=== PATIENT | male | born 1945 | race Caucasian/White ===

== ENCOUNTER → 2016-10-14 | Outpatient (CLI) | payer MEDICARE ==
[~2016-10-14] MED LIST: ASPIRINBUFF PO; BACITRACIN30 GM TOP; GLUCOPHAGE500 M1 PO; GLUCOTROL; IBUPROFEN PO; KEFLEX PO; LIPITOR; LISINOPRIL-HCTZ1 T18 PO; LOPID600 MG PO; TREXALL10 MG PO; VITAMIN C PO
--- NOTE | ~2016-10-14 | US13 ---
[facility] A Service of [facility] RADIOLOGY TEXT RESULTS PATIENT: ANA M NOBLES LOCATION: [facility] : 45 UNIT #: [id number] AGE: [address]: Rey Grifftih MD SEX: M ORDER DR: [id number] [address] [address] [id number] O MR#: [id number] Acc #: [id number] NAME: ANA M NOBLES : 1945 SEX: M STUDY DATE/TIME: 10/14/2016 8:53 UNIT: [facility] ROOM: STUDY DESCRIPTION: US Aorta Limited Attending Physician: Rey Griffith Jr., M.D. Referring Physician: Rey Griffith Jr., M.D. Ordering Physician: Rey Griffith Jr., M.D. Primary Care Physician: Rey Griffith Jr., M.D. MEDICAL IMAGING REPORT This report is preliminary unless electronic signature is present. EXAM Ultrasound of the aorta DATE OF EXAMINATION 10/14/2016 HISTORY Former smoker. Screening for abdominal aortic aneurysm. FINDINGS High resolution B-mode imaging and color flow Doppler analysis was performed of the abdominal aorta in longitudinal and transverse views. The proximal abdominal aorta measures 2.2 x 2.0 x 2.5 cm, the mid abdominal aorta measures 1.6 x 2.0 x 2.2 cm. The distal abdominal aorta measures 1.2 x 1.6 x 2.1 cm. There is no focal elevation of Doppler velocities to suggest significant stenosis. The iliac arteries were not evaluated. IMPRESSION Normal examination of the abdominal aorta. No aneurysm is demonstrated. Dictated by... Javier Ellis M.D. THIS IS AN ELECTRONICALLY VERIFIED REPORT Javier Ellis M.D. at 10/15/2016 9:40 AM Dionne TD: 10/14/2016 15:11 JOB #: [id number] [facility] A Service [facility] RADIOLOGY TEXT RESULTS PATIENT: ANA M NOBLES LOCATION: [facility] #: [id number] : 45 UNIT #: [id number] AGE: [address]: Rey Griffith MD SEX: M ORDER DR: MEDICAL IMAGING REPORT Page 1 of 1
== END | disposition home or self-care (01) ==
LOC: SGUS 08:05
DX: Z13.6 Encounter for screening for cardiovascular disorders (principal); Z87.891 Personal history of nicotine dependence
CPT/HCPCS: 76775

== ENCOUNTER 2016-10-20 08:42 | Emergency (ER) | payer MEDICARE ==
--- NOTE | ~2016-10-20 | CR173 ---
[facility] A Service of [facility] & [facility] RADIOLOGY TEXT RESULTS PATIENT: ANA M NOBLES LOCATION: SED : 45 UNIT #: [id number] AGE: [address]: Bakari Simmons MD SEX: M ORDER DR: [id number] [place] [address] [id number] E MR#: [id number] Acc #: [id number] NAME: ANA M NOBLES. : 1945 SEX: M STUDY DATE/TIME: 10/20/2016 09:18 UNIT: SED ROOM: STUDY DESCRIPTION: CR Knee 3 Views Rt Attending Physician: Bakari Simmons M.D. Ordering Physician: Bakari Simmons M.D. Primary Care Physician: Rey Griffith Jr., M.D. MEDICAL IMAGING REPORT This report is preliminary unless electronic signature is present. EXAM Right knee 3 views 10/20/2016 0918 hours CLINICAL HISTORY 71-year-old man with twisting injury while running last night with fall, knee pain since fall. COMPARISON None. FINDINGS AP, lateral and sunrise views demonstrate no joint effusion or fracture. There is no os joint space loss, spurring or loose body. IMPRESSION Normal right knee. Dictated by... Wen Kaur M.D. THIS IS AN ELECTRONICALLY VERIFIED REPORT Wen Kaur M.D. at 10/20/2016 2:28 PM ALYSE/anne-marie TD: 10/20/2016 11:01 JOB #: [id number] MEDICAL IMAGING REPORT Page 1 of 1
[~2016-10-20 08:42] MED LIST changes: -GLUCOTROL; -LIPITOR
[2016-10-20] MEDS ORDERED: LIPITOR (08:47)
[2016-10-20] MEDS ORDERED: GLUCOTROL (08:48)
== END 2016-10-20 09:52 | disposition home or self-care (01) ==
LOC: SED 08:42
DX: S83.511A Sprain of anterior cruciate ligament of right knee, initial encounter (principal); E11.9 Type 2 diabetes mellitus without complications; I10 Essential (primary) hypertension; X50.1XXA Overexertion from prolonged static or awkward postures, initial encounter; Y92.009 Unspecified place in unspecified non-institutional (private) residence as the place of occurrence of the external cause; Z79.84 Long term (current) use of oral hypoglycemic drugs; Z79.899 Other long term (current) drug therapy
CPT/HCPCS: 29505; 73562; 99283

== ENCOUNTER 2016-12-04 15:17 | Emergency (ER) | payer MEDICARE ==
--- NOTE | ~2016-12-04 | US85 ---
[facility] A Service of [facility] & [facility] RADIOLOGY TEXT RESULTS PATIENT: ANA M NOBLES LOCATION: [facility] : 45 UNIT #: [id number] AGE: [address]: Kishore Goodwin SEX: M ORDER DR: [id number] [facility] [address] [place], [place] [address] [id number] E MR#: [id number] Acc #: [id number] NAME: ANA M NOBLES. : 1945 SEX: M STUDY DATE/TIME: 12/04/2016 16:39 UNIT: [facility] ROOM: STUDY DESCRIPTION: [facility] Attending Physician: (Tana) Kishore Goodwin Ordering Physician: Tana Goodwin Primary Care Physician: Rey Griffith Jr., M.D. MEDICAL IMAGING REPORT This report is preliminary unless electronic signature is present EXAM Right leg vein Doppler, 12/04/2016. INDICATIONS Fall 6 weeks ago. Right lower extremity swelling in the calf and ankle for one day. TECHNIQUE Venous ultrasound examination of the right lower extremity was performed using grayscale, spectral Doppler and color flow Doppler imaging. FINDINGS The examination is negative. There is no evidence of right lower extremity deep venous thrombus from the groin to the lower calf. Visualized greater saphenous vein is also patent. IMPRESSION Negative examination. No evidence of right lower extremity DVT. Dictated by... Bakari Alan Jr., M.D. THIS IS AN ELECTRONICALLY VERIFIED REPORT Bakari Alan Jr., M.D. at 12/07/2016 5:54 AM CAITY/zach TD: 12/05/2016 00:52 JOB #: [id number] MEDICAL IMAGING REPORT Page 1 of 1 COPY
--- NOTE | ~2016-12-04 | CR173 ---
[facility] A Service of [facility] & [facility] RADIOLOGY TEXT RESULTS PATIENT: ANA M NOBLES LOCATION: [facility] : 45 UNIT #: [id number] AGE: [address]: Kishore Goodwin SEX: M ORDER DR: [id number] [facility] [address] [place], [place] [address] [id number] E MR#: [id number] Acc #: [id number] NAME: ANA M NOBLES. : 1945 SEX: M STUDY DATE/TIME: 12/04/2016 17:02 UNIT: [facility] ROOM: STUDY DESCRIPTION: CR Knee 3 Views Rt Attending Physician: Kishore Goodwin Ordering Physician: Kishore Goodwin Primary Care Physician: Rey Griffith Jr., M.D. MEDICAL IMAGING REPORT This report is preliminary unless electronic signature is present EXAM Right knee, 3 views. INDICATION Right knee pain and swelling for 1.5 months but reinjured it yesterday. COMPARISON Comparison with 10/20/2016. FINDINGS There is no significant joint space narrowing. There is no fracture or joint effusion. No dislocation. Vascular calcifications. IMPRESSION No acute findings. Dictated by... Teodoro Uriarte M.D. THIS IS AN ELECTRONICALLY VERIFIED REPORT Teodoro Uriarte M.D. at 12/09/2016 1:32 PM SMITH/matt TD: 12/05/2016 02:07 JOB #: [id number] MEDICAL IMAGING REPORT Page 1 of 1 COPY
[~2016-12-04 15:17] MED LIST changes: +GLUCOTROL; +LIPITOR
== END 2016-12-04 17:49 | disposition home or self-care (01) ==
LOC: CED 15:17 → CFTX 15:17
DX: S83.91XA Sprain of unspecified site of right knee, initial encounter (principal); E11.9 Type 2 diabetes mellitus without complications; I10 Essential (primary) hypertension; F17.210 Nicotine dependence, cigarettes, uncomplicated; Z79.899 Other long term (current) drug therapy; X50.1XXA Overexertion from prolonged static or awkward postures, initial encounter; Y92.009 Unspecified place in unspecified non-institutional (private) residence as the place of occurrence of the external cause
CPT/HCPCS: 29505; 73562; 93971; 99283